=== PATIENT | male | born 1970 | race Caucasian/White ===

== ENCOUNTER 2022-02-08 14:24 | Emergency (ER) | payer BC, SELFPAY ==
[2022-02-08 14:34] VITALS: BP 146/94; PULSE 80; RESP 16; TEMP 37.1; O2SAT 98
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
== END 2022-02-08 17:45 | disposition home or self-care (01) ==
PROVIDERS: Emergency Provider Student in an Organized Health Care Education/Training Program
DX: S82.892A Other fracture of left lower leg, initial encounter for closed fracture (principal); V18.4XXA Pedal cycle driver injured in noncollision transport accident in traffic accident, initial encounter
CPT/HCPCS: 29515; 99283; 73600